=== PATIENT | female | born 1990 | race Caucasian/White ===

== ENCOUNTER 2022-03-04 06:27 | Day surgery (SDC) | payer OTHER ==
[~2022-03-04] VITALS: Ht 162.6 cm; Wt 63.6 kg
[~2022-03-04 06:27] MED LIST: BECL10.62 IH; BENZ100C68 PO; FAMO20TA8 PO; MONT-40 PO; PRED-729 PO; SODIUM CHLORIDE 0.9% 1,000 ML IV ONE
[2022-03-04] MEDS ORDERED: LIDOCAINE 4% 50 ML SOLUTION TP ONE (06:28)
[2022-03-04] MEDS ORDERED: BENZOCAINE 20% 50 MCG/SPRAY 57 GM TP ONE (06:28)
[2022-03-04] MEDS ORDERED: LIDOCAINE 2% 11 ML JELLY TP ONE (06:28)
[2022-03-04 07:19] LABS: COVID AG,FIA SOURCE NASOPHARYNGEAL
[2022-03-04] MEDS ORDERED: MIDAZOLAM HCL 2 MG/2 ML VIAL ONE (07:52)
[2022-03-04] MEDS ORDERED: FentaNYL CITRATE PF 100 MCG/2 ML VIAL ONE (07:53)
[2022-03-04] MEDS ORDERED: MethylPREDNISolone SOD SUCC 125 MG/2 ML VIAL IVP ONE (09:30)
[2022-03-04] MEDS ORDERED: MethylPREDNISolone SOD SUCC 125 MG/2 ML VIAL ONE (09:54)
[2022-03-04] MEDS ORDERED: OXYGEN THERAPY IH SCH (20:00)
== END 2022-03-04 12:15 | disposition home or self-care (01) ==
LOC: SURGERY 06:27
PROVIDERS: ATTEND Internal Medicine Critical Care Medicine
DX: J38.4 Edema of larynx (principal); Z90.710 Acquired absence of both cervix and uterus; Z98.890 Other specified postprocedural states; Z79.899 Other long term (current) drug therapy; Z20.822 Contact with and (suspected) exposure to COVID-19
CPT/HCPCS: 31623; 84703; 87101; 87220; 87070; 31624; 71045; 87015; 87426; 87206; J3010; J2250; J2930; Q9967; C9803; 88112; Z7610